=== PATIENT | female | born 1995 | race Two or more races ===

== ENCOUNTER 2019-03-28 09:30 | Observation (INO) | payer MEDICAID ==
[~2019-03-28] VITALS: Ht 154.9 cm; Wt 70.8 kg
[~2019-03-28 09:30] MED LIST: PREN1TAB22 PO
[2019-03-28 10:26] VITALS: BP 113/73
[2019-03-28] MEDS ORDERED: PREN-217 PO (10:28)
== END 2019-03-28 13:35 | disposition home or self-care (01) ==
LOC: 4S 09:30
PROVIDERS: ADMIT Obstetrics & Gynecology; ATTEND Obstetrics & Gynecology
DX: Z34.83 Encounter for supervision of other normal pregnancy, third trimester (principal); Z3A.35 35 weeks gestation of pregnancy
CPT/HCPCS: 76811; 81002; G0378

== ENCOUNTER 2019-03-29 18:58 | Inpatient (IN) | payer MEDICAID ==
[~2019-03-29] VITALS: Ht 154.9 cm; Wt 71.7 kg
[~2019-03-29 18:58] MED LIST changes: +PREN-217 PO
[2019-03-29 19:46] VITALS: BP 116/78
[2019-03-29] MEDS ORDERED: BETAMETHASONE SOLUSPAN 6 MG/ML 5 ML VIAL IM SCH (23:00)
[2019-03-29] MEDS ORDERED: NIFEdipine 10 MG CAPSULE PO ONE (23:00)
[2019-03-29] MEDS: RINGERS SOLUTION,LACTATED 1,000 ML IV SCH (23:15)
[2019-03-30] MEDS: RINGERS SOLUTION,LACTATED 1,000 ML IV SCH ×3 (01:02→07:50)
[2019-03-30] MEDS ORDERED: RINGERS SOLUTION,LACTATED 1,000 ML IV PRN (01:03)
[2019-03-30] MEDS ORDERED: OXYTOCIN 30 UNITS/LACT RINGERS 500 ML IV ONE (01:03)
[2019-03-30] MEDS ORDERED: METOCLOPRAMIDE HCL 5 MG/ML 2 ML VIAL IVP PRN (01:15)
[2019-03-30] MEDS ORDERED: AMPICILLIN SODIUM 2 GM/NS 100 ML IV ONE (01:15)
[2019-03-30] MEDS ORDERED: CITRIC ACID/SODIUM CITRATE 30 ML SOLUTION UDCUP PO PRN (01:15)
[2019-03-30] MEDS ORDERED: METHYLERGONOVINE MALEATE 0.2 MG/ML VIAL IM PRN (01:15)
[2019-03-30] MEDS ORDERED: LIDOCAINE/PF 1% 30 ML VIAL INJ PRN (01:15)
[2019-03-30] MEDS ORDERED: FentaNYL CITRATE-PF 100 MCG/2 ML VIAL IVP PRN (01:15)
[2019-03-30 01:30] LABS: BASOPHILS % (AUTO) 0.7 % (0.0-2.0); EOSINOPHILS % (AUTO) 0.6 % (1.0-6.0); LYMPHOCYTES # (AUTO) 2.1 K/uL (1.0-4.8); LYMPHOCYTES % (AUTO) 17.6 % (22.0-44.0); MEAN CORPUSCULAR HEMOGLOBIN 30.5 pg (26.0-34.0); MEAN CORPUSCULAR HGB CONC 33.4 G/dL (31.0-37.0); MEAN CORPUSCULAR VOLUME 91 fL (80-100); MONOCYTES # (AUTO) 0.9 K/uL (0.1-1.0); MONOCYTES % (AUTO) 7.4 % (2.0-9.0); NEUTROPHILS # (AUTO) 8.6 K/uL (1.8-7.7); NEUTROPHILS % (AUTO) 73.7 % (40.0-70.0); PLATELET COUNT (AUTO)-OB 327 K/uL (150-450); RED BLOOD CELL COUNT(AUTO) 4.28 MIL/uL (4.00-5.20); RED CELL DISTRIBUTION WIDTH 12.9 % (11.5-14.5)
[2019-03-30] MEDS ORDERED: ROPIVACAINE HCL/PF 0.2% 100 ML ED PRN (02:44)
[2019-03-30] MEDS ORDERED: DiphenhydrAMINE HCL 50 MG/ML VIAL IVP PRN (02:45)
[2019-03-30] MEDS ORDERED: ONDANSETRON HCL 4 MG/2 ML VIAL IVP PRN (02:45)
[2019-03-30] MEDS ORDERED: NALBUPHINE HCL 10 MG/ML VIAL IVP PRN (02:45)
[2019-03-30] MEDS ORDERED: DEXTROSE IV SCH (05:15)
[2019-03-30] MEDS ORDERED: PENICILLIN POTASSIUM IV SCH (05:15)
[2019-03-30] MEDS ORDERED: AMPICILLIN SODIUM 1 GM/NS 50 ML IV SCH (05:15)
[2019-03-30] MEDS ORDERED: WATER IV SCH (05:15)
[2019-03-30] MEDS ORDERED: OXYGEN THERAPY IH SCH (08:00)
[2019-03-30] MEDS ORDERED: OXYTOCIN 20 UNITS/LACT RINGERS 1,000 ML IV SCH (10:00)
[2019-03-30] MEDS ORDERED: IBUPROFEN 600 MG TABLET PO PRN (10:00)
[2019-03-30] MEDS ORDERED: LANOLIN 7 GM OINTMENT TP PRN (10:00)
[2019-03-30] MEDS ORDERED: GLYCERIN/WITCH HAZEL LEAF 40 PADS JAR TP PRN (10:00)
[2019-03-30] MEDS ORDERED: SENNA/DOCUSATE SODIUM 8.6-50 MG TABLET PO PRN (10:00)
[2019-03-30] MEDS ORDERED: BENZOCAINE 20%/MENTHOL 56 GM SPRAY CANISTER TP PRN (10:00)
[2019-03-30] MEDS ORDERED: MAGNESIUM HYDROXIDE SUSPENSION 30 ML UDCUP PO PRN (10:00)
[2019-03-30] MEDS ORDERED: ACETAMINOPHEN/CODEINE 300-30 MG TABLET PO PRN (10:00)
[2019-03-31 06:25] LABS: BASOPHILS % (AUTO) 0.2 % (0.0-2.0); EOSINOPHILS % (AUTO) 0.3 % (1.0-6.0); HEMATOCRIT 30.6 % (36-46); HEMOGLOBIN 10.2 g/dL (12.0-16.0); LYMPHOCYTES # (AUTO) 2.5 K/uL (1.0-4.8); LYMPHOCYTES % (AUTO) 15.5 % (22.0-44.0); MEAN CORPUSCULAR HEMOGLOBIN 30.6 pg (26.0-34.0); MEAN CORPUSCULAR HGB CONC 33.4 G/dL (31.0-37.0); MEAN CORPUSCULAR VOLUME 92 fL (80-100); MONOCYTES # (AUTO) 1.4 K/uL (0.1-1.0); MONOCYTES % (AUTO) 8.8 % (2.0-9.0); NEUTROPHILS % (AUTO) 75.2 % (40.0-70.0); PLATELET COUNT (AUTO)-OB 264 K/uL (150-450); RED BLOOD CELL COUNT(AUTO) 3.34 MIL/uL (4.00-5.20); RED CELL DISTRIBUTION WIDTH 13.4 % (11.5-14.5)
[2019-03-31] MEDS ORDERED: IBUP-2071 PO (09:20)
[2019-03-31] MEDS ORDERED: DOCU-275 PO (09:23)
[2019-03-31] MEDS ORDERED: FERR-89 PO (09:25)
== END 2019-03-31 13:20 | disposition home or self-care (01) | DRG 560 ==
LOC: 4S 18:58 → OBSVTOIN 18:58
PROVIDERS: ADMIT Obstetrics & Gynecology; ATTEND Obstetrics & Gynecology
PROC: 10E0XZZ Delivery of Products of Conception, External Approach (ICD-10-PCS; principal; 2019-03-30)
PROC: 10907ZC Drainage of Amniotic Fluid, Therapeutic from Products of Conception, Via Natural or Artificial Opening (ICD-10-PCS; 2019-03-30)
PROC: 0UQGXZZ Repair Vagina, External Approach (ICD-10-PCS; 2019-03-30)
PROC: 3E0R3BZ Introduction of Anesthetic Agent into Spinal Canal, Percutaneous Approach (ICD-10-PCS; 2019-03-30)
PROC: 00HU33Z Insertion of Infusion Device into Spinal Canal, Percutaneous Approach (ICD-10-PCS; 2019-03-30)
DX: O60.14X0 Preterm labor third trimester with preterm delivery third trimester, not applicable or unspecified (principal); O71.4 Obstetric high vaginal laceration alone; O69.82X0 Labor and delivery complicated by other cord entanglement, without compression, not applicable or unspecified; Z3A.35 35 weeks gestation of pregnancy; Z37.0 Single live birth
CPT/HCPCS: 86850; 86900; 86901; 89060; J0290; J0702; J2540; J2590; J3010; J7060; J7120